=== PATIENT | female | born 1995 | race Caucasian/White ===

== ENCOUNTER 2024-09-04 17:43 | Outpatient (CLI) | payer OTHER | END 2024-09-04 18:01 | disposition home or self-care (01) | LOC: NST 17:43 | PROVIDERS: ATTEND Obstetrics & Gynecology | DX: Z34.83 Encounter for supervision of other normal pregnancy, third trimester (principal) ==

== ENCOUNTER 2024-09-09 05:09 | Inpatient (IN) | payer OTHER ==
[~2024-09-09] VITALS: Ht 162.6 cm; Wt 76.2 kg
[2024-09-09 07:30] VITALS: BP 112/77
[2024-09-09] MEDS ORDERED: RINGERS SOLUTION,LACTATED 1,000 ML IV SCH (07:45)
[2024-09-09] MEDS ORDERED: OXYTOCIN 500 ML IV ONE (07:45)
[2024-09-09] MEDS ORDERED: OXYTOCIN 20 UNITS/500ML RL PIGGYBAG IV ONE (08:27)
[2024-09-09 08:34] LABS: HEMATOCRIT 38.3 % (36.0-45.00); HEMOGLOBIN 13.2 g/dL (12.0-15.00); MEAN CELL VOLUME 92.9 fL (80.00-100.00); MEAN CORPUSCULAR HEMOGLOBIN 32.1 pg (27.00-32.0); MEAN CORPUSCULAR HGB CONC 34.6 g/dl (32.0-36.0); PLATELET COUNT 155 K/uL (150-450); RED BLOOD COUNT 4.12 M/uL (4.00-6.00)
[2024-09-09 08:59] LABS: INR < 0.93; PARTIAL THROMBOPLASTIN TIME 25.3 SECONDS (22.0-34.0); PROTHROMBIN TIME 9.8 SECONDS (9.0-11.5)
[2024-09-09 09:31] LABS: ALBUMIN 2.9 gm/dL (3.4-5.0); BILIRUBIN TOTAL 0.23 mg/dL (0.3-1.2); CALCIUM 8.7 mg/dL (8.5-10.1); CREATININE SERUM 0.5 mg/dL (0.55-1.02); GFR 146.91; GLOBULINA 3.6 G/DL (2.4-3.5); POTASSIUM 4.11 mEq/L (3.5-5.1); TOTAL PROTEIN 6.5 gm/dL (6.4-8.2)
[2024-09-09 11:40] VITALS: BP 119/73; O2SAT 100
[2024-09-09] MEDS ORDERED: ONDANSETRON HCL 2 MG/ML VIAL IV ONE (13:00)
[2024-09-09 15:41] VITALS: BP 112/64
[2024-09-09] MEDS ORDERED: OXYTOCIN 20 UNITS/1000ML RL PIGGYBAG IV ONE (18:44)
[2024-09-09] MEDS ORDERED: ERYTHROMYCIN BASE OPHT 1GM EACH TUBE OP ONE ×2 (18:44→19:50)
[2024-09-09] MEDS ORDERED: CHLORHEXIDINE GLUCONATE 120 ML BOTTLE TOP ONE (18:44)
[2024-09-09] MEDS ORDERED: LIDOCAINE HCL 1% 10ML VIAL ONE (18:44)
[2024-09-09] MEDS ORDERED: OXYTOCIN 10 UNITS/ML VIAL ONE (19:50)
[2024-09-09 20:07] VITALS: BP 133/83
[2024-09-09] MEDS ORDERED: CEFAZOLIN SODIUM 1,000 MG VIAL ONE (20:23)
[2024-09-09] MEDS ORDERED: METHYLERGONOVINE MALEATE 0.2 MG/ML AMPUL ONE (20:56)
[2024-09-09] MEDS ORDERED: OXYTOCIN 1,000 ML IV SCH (21:15)
[2024-09-09] MEDS ORDERED: MORPHINE SULFATE 4 MG/ML CARTRIDGE IV PRN (21:15)
[2024-09-09 23:13] LABS: HEMATOCRIT 40.2 % (36.0-45.00); HEMOGLOBIN 13.5 g/dL (12.0-15.00); MEAN CELL VOLUME 93.8 fL (80.00-100.00); MEAN CORPUSCULAR HEMOGLOBIN 31.6 pg (27.00-32.0); MEAN CORPUSCULAR HGB CONC 33.7 g/dl (32.0-36.0); RED BLOOD COUNT 4.29 M/uL (4.00-6.00); RED CELL DISTRIBUTION WIDTH 13.6 % (11.5-14.5)
[2024-09-09 23:36] LABS: PLATELET COUNT 130 K/uL (150-450)
[2024-09-09 23:38] LABS: INR < 0.93; PARTIAL THROMBOPLASTIN TIME 25.4 SECONDS (22.0-34.0); PROTHROMBIN TIME 9.9 SECONDS (9.0-11.5)
[2024-09-09 23:42] LABS: ALBUMIN 2.5 gm/dL (3.4-5.0); BILIRUBIN TOTAL 0.31 mg/dL (0.3-1.2); CALCIUM 8.7 mg/dL (8.5-10.1); CREATININE SERUM 0.61 mg/dL (0.55-1.02); GFR 116.79; GLOBULINA 3.3 G/DL (2.4-3.5); POTASSIUM 4.35 mEq/L (3.5-5.1); TOTAL PROTEIN 5.8 gm/dL (6.4-8.2)
[2024-09-10] MEDS ORDERED: OXYTOCIN 10 UNITS/ML VIAL ONE
[2024-09-10 01:35] VITALS: BP 102/68
[2024-09-10] MEDS ORDERED: IBUprofen 400 MG TABLET PO SCH (09:00)
[2024-09-10 09:21] LABS: HEMATOCRIT 34.3 % (36.0-45.00); HEMOGLOBIN 11.7 g/dL (12.0-15.00); MEAN CELL VOLUME 94.1 fL (80.00-100.00); PLATELET COUNT 121 K/uL (150-450); RED BLOOD COUNT 3.65 M/uL (4.00-6.00); RED CELL DISTRIBUTION WIDTH 13.7 % (11.5-14.5)
[2024-09-10 09:27] VITALS: BP 110/70
[2024-09-10 16:02] VITALS: BP 102/70
[2024-09-11] MEDS ORDERED: OxyCODONE HCL 5 MG TABLET (ROXICODONE) PO PRN
[2024-09-11 00:50] VITALS: BP 100/67
[2024-09-11] MEDS ORDERED: BISACODYL 10 MG/SUPP.RECT SUPP.RECT RECTAL STA (08:49)
[2024-09-11 09:28] VITALS: BP 107/73
[2024-09-11 15:54] VITALS: BP 103/69
[2024-09-12] VITALS: BP 98/64
[2024-09-12 07:50] VITALS: BP 97/65
[2024-09-12] MEDS ORDERED: OXYCODONE HCL5 MG PO (09:33)
[2024-09-12] MEDS ORDERED: KETO10TA2 PO (09:33)
== END 2024-09-12 13:32 | disposition home or self-care (01) | DRG 788 ==
LOC: LDR → OB/GYN 05:09 → LDR 07:10 → OB/GYN 20:37
PROVIDERS: Obstetrics & Gynecology; ADMIT Obstetrics & Gynecology Maternal & Fetal Medicine; ATTEND Obstetrics & Gynecology Maternal & Fetal Medicine
PROC: 4A1HXCZ Monitoring of Products of Conception, Cardiac Rate, External Approach (ICD-10-PCS; 2024-09-09)
PROC: 10D00Z1 Extraction of Products of Conception, Low, Open Approach (ICD-10-PCS; principal; 2024-09-10)
DX: O82 Encounter for cesarean delivery without indication (principal); O62.1 Secondary uterine inertia; Z3A.40 40 weeks gestation of pregnancy; Z37.0 Single live birth